=== PATIENT | female | born 1970 | race Caucasian/White ===

== ENCOUNTER 2017-01-19 06:27 | Day surgery (SDC) | payer BC ==
[~2017-01-19 06:27] MED LIST: Buffered Lidocaine 0.9% SYRIN* 5 ML/SYR SYRINGE INTRADERM ONE; Sodium Citrate/Citric Acid* 15 ML UDC PO ONE
[2017-01-19] MEDS ORDERED: Buffered Lidocaine 0.9% SYRIN* 5 ML/SYR SYRINGE ONE (06:37)
[2017-01-19] MEDS ORDERED: Sodium Citrate/Citric Acid* 15 ML UDC ONE (06:37)
[2017-01-19] MEDS ORDERED: Bupivacaine 0.25% SDV* 30 ML ONE (07:22)
[2017-01-19] MEDS ORDERED: fentaNYL* 50 MCG/ML 2 ML VIAL (100 MCG VIAL) ONE ×4 (07:54→10:33)
[2017-01-19] MEDS ORDERED: ceFAZolin 2 GM PREMIX(*) 2 GM/50 ML BAG IVPB ONE (08:03)
[2017-01-19] MEDS ORDERED: Lidocaine 2% PF * 5 ML VIAL ONE (08:10)
[2017-01-19] MEDS ORDERED: Dexamethasone IV* 4 MG/ML 1 ML (4 MG) ONE (08:10)
[2017-01-19] MEDS ORDERED: Propofol* 10 MG/ML 20 ML BTL IV PUSH ONE (08:10)
[2017-01-19] MEDS ORDERED: Ketorolac INJ* 30 MG/ML 1 ML VIAL ONE (09:30)
[2017-01-19] MEDS: fentaNYL* 50 MCG/ML 2 ML VIAL (100 MCG VIAL) IV PRN ×5 (09:49→10:34)
[2017-01-19] MEDS ORDERED: HYDROcodone/ACETAMIN 5-325 MG* 1 TAB ONE (09:55)
[2017-01-19 11:43] VITALS: BP 106/67
--- NOTE | 2017-01-20 03:45 | OP ---
DATE OF OPERATION: 01/19/17 - [facility] DATE OF : 74 SURGEON: Kaiden Epstein MD LOOM MECHANIC: JAYDA Campos, JAYDA Aviles student. An billing and accounting staff assistant was needed for the entirety of the procedure to assist with arm positioning and retraction. ANESTHESIOLOGIST: Dr. Gaines. ANESTHESIA: General. PRE-OP DIAGNOSES: 1. Chronic left elbow lateral epicondylitis. 2. Left radial tunnel syndrome. POST-OP DIAGNOSES: 1. Chronic left elbow lateral epicondylitis. 2. Left radial tunnel syndrome. PROCEDURE PERFORMED: 1. Debridement of chronic left elbow lateral epicondylitis with debridement of the ECRB origin. 2. Left posterior interosseous nerve decompression (radial tunnel release). INDICATION: Radha is a patient who I have seen multiple times and who has also seen two of my partners. She has had lateral elbow and lateral volar forearm pain for a year. She has tried injections, therapy, bracing, all without relief. I have seen her a couple of times over the last few months and my exam was consistent with not only lateral epicondylitis but also radial tunnel syndrome but she had significant pain with resisted supination, severe pain with resisted long finger extension and severe tenderness right over the radial tunnel, which she did not have on the contralateral side. I thought that she will be best served by not only debridement of the lateral epicondylitis but also radial tunnel release. We talked about risks and benefits including the risk of PIN palsy and the not insignificant risk of failure of relief of her symptoms. She understood this and wished to proceed with surgery. ESTIMATED BLOOD LOSS: 5 mL. COMPLICATIONS: None. FINDINGS: Expected degenerative tissue at the ECRB origin. DESCRIPTION OF PROCEDURE: Radha was seen in the preoperative holding area. The correct site and side of the procedure were identified. We came back to the operating room, anesthesia was induced and we had a formal time out. The arm was exsanguinated with the Esmarch and the tourniquet was inflated to 250 mmHg. I then made a longitudinal incision from the mid aspect of the lateral epicondyle down through the mid portion of the radiocapitellar joint and along the course of the radius distally. Dissection was then carried down through subcutaneous tissue. Full thickness flaps were raised off the deep fascia. The interval between the ECRL and the EDC was readily apparent. The fascia was incised along this interval. Retractors were used to expose the ECRB tendon origin deep to this. The expected silver disorganized tissue was encountered. This was debrided right off the lateral epicondyle. Care was taken to develop the interval between the capsule and the ECRB. Ultimately, it was quite adherent and some of the capsule came with the debridement. The debridement was completed sharply and also with the rongeur. Once I felt like I had adequate debridement, I went ahead and turned my attention to the radial tunnel. I continued the split between the ECRL and the EDC more distally. With the use of retractors, this brought me down to the supinator muscle and more proximally the fat overlying the radiocapitellar joint was encountered. I released some more of the extensors off the annular ligament to gain better exposure. Ultimately, I was able to encounter a robust posterior interosseous nerve sitting just anterior on the radiocapitellar joint. The leash of Alejandro was readily apparent. This was mobilized away from the nerve and then released and cauterized with the bipolar cautery. The posterior interosseous nerve was dissected distally until the leading edge of the supinator was encountered. This was released. The nerve was dissected out from the supinator muscle along the entirety of its course through the supinator and then the distal fascial edge was similarly released. At this point, the PIN began to branch readily giving out multiple muscular branches, these were all preserved. I turned my attention again proximally and released a few more fascial bands proximally. Ultimately I felt like there was no compression on the posterior interosseous nerve from proximal to the radiocapitellar joint all the way down to where it was arborizing. I dissected all the way back up to where it was branched to the branch point of the superficial branch of the radial nerve. It was obvious that there was no compression from that point all the way down to where it began to arborize and the supinator had been completely released. I, therefore , irrigated out the wound. Great care was taken throughout the case to avoid any retraction on the posterior interosseous nerve and to handle gently and with great care. The wound was copiously irrigated. The fascia between the ECRL and EDC was closed with 0 Vicryl suture. Subcutaneous tissue was reapproximated with 2-0 Polysorb suture. The skin was closed with 4-0 nylon suture. The operative area was infiltrated with 0.25% plain Marcaine but not deep in the area of the posterior interosseous nerve as I wanted to get a nice postop exam. The wound was dressed with Xeroform, 4x4's, ABD, sterile Webril and an Castro bandage. Tourniquet was deflated. The hand pinked up immediately. She was then woken up and taken to recovery room in stable condition. Twenty minutes later, examination in the recovery room showed intact thumb extension and finger extension. [id number]/[facility] #: [id number] [facility]
== END 2017-01-19 11:15 | disposition home or self-care (01) ==
LOC: OREAST 06:27
PROVIDERS: ATTEND Orthopaedic Surgery Hand Surgery
DX: M77.12 Lateral epicondylitis, left elbow (principal); G56.32 Lesion of radial nerve, left upper limb; F17.210 Nicotine dependence, cigarettes, uncomplicated
CPT/HCPCS: 81025; 88304; A9270-GY; J0690; J1100; J1885; J2704; J3010